=== PATIENT | female | born 1945 | race Caucasian/White ===

== ENCOUNTER → 2023-12-06 16:58 | Outpatient (REF) | payer OTHER, SELFPAY | LOC: RAD 16:58 | PROVIDERS: ATTENDING PHYSICIAN Internal Medicine | DX: M17.0 Bilateral primary osteoarthritis of knee (principal) | CPT/HCPCS: 73564 ==

== ENCOUNTER 2024-01-23 09:04 | Outpatient (RCR) | payer OTHER, SELFPAY | END 2024-01-23 23:59 | disposition home or self-care (01) | LOC: RPT 09:04 | PROVIDERS: ATTENDING PHYSICIAN Internal Medicine | DX: M17.0 Bilateral primary osteoarthritis of knee (principal); Z73.6 Limitation of activities due to disability | CPT/HCPCS: 97110; 97112; 97162; 97530 ==

== ENCOUNTER 2024-02-22 09:52 | Outpatient (RCR) | payer OTHER, SELFPAY | END 2024-02-23 11:12 | disposition home or self-care (01) | LOC: RPT 09:52 | PROVIDERS: ATTENDING PHYSICIAN Internal Medicine | DX: M17.0 Bilateral primary osteoarthritis of knee (principal); Z73.6 Limitation of activities due to disability | CPT/HCPCS: 97110; 97112; 97530 ==

== ENCOUNTER → 2024-07-11 14:30 | Outpatient (REF) | payer OTHER, SELFPAY | LOC: WDC 14:30 | PROVIDERS: ATTENDING PHYSICIAN Internal Medicine | DX: Z12.31 Encounter for screening mammogram for malignant neoplasm of breast (principal) | CPT/HCPCS: 77063; 77067 ==

== ENCOUNTER 2024-08-15 23:07 | Inpatient (IN) | payer OTHER, SELFPAY ==
[2024-08-15 19:44] VITALS: BP 143/100
[2024-08-15] MEDS: TYLENOL 650 MG PO (20:04)
[2024-08-15 20:10] LABS: % Basophils 0.3 % (0-2); % Eosinophils 0.3 % (0-6); % Immature Granulocytes 0.4 % (0-0.5); % Lymphocytes 6.3 % (20.5-51.1); % Monocytes 7.5 % (1.7-9.3); % Neutrophils 85.2 % (42.2-75.2); Absolute Lymphocytes 0.6 10^3/uL (1.2-3.4); Absolute Monocytes 0.7 10^3/uL (0.1-0.6); Absolute Neutrophils 8.1 10^3/uL (1.4-6.5); Hematocrit 41.3 % (37.0-47.0); Hemoglobin 14.7 g/dL (12.0-16.0); Mean Corp Hgb Conc. 35.6 g/dL (33.0-37.0); Mean Corpuscular Hgb 31.3 pg (27.0-31.0); Mean Corpuscular Volume 87.9 fL (81.0-99.0); Mean Platelet Volume 10.4 fL (7.4-10.4); Nucleated Red Blood Cells % 0 %; Platelet Count 253 10^3/uL (130-400); Red Cell Dist. Width 13.2 % (11.5-14.5); White Blood Cell Count 9.6 10^3/uL (4.8-10.8)
[2024-08-15 20:25] LABS: ALT (SGPT) 25 U/L (0-35); AST (SGOT) 22 U/L (14-36); Albumin 4.8 g/dl (3.5-5.0); Alkaline Phosphatase 138 U/L (38-126); Blood Urea Nitrogen 24 mg/dl (7-17); COVID-19 Antigen Positive (Negative); Calcium 9.8 mg/dl (8.4-10.2); Carbon Dioxide 24 mmol/L (22-30); Chloride 103 mmol/L (98-107); Glucose 145 mg/dl (70-99); Potassium 4.1 mmol/L (3.5-5.1); Sodium 139 mmol/L (135-145); Total Bilirubin 0.7 mg/dl (0.2-1.3); Total Protein 7.7 g/dl (6.3-8.2); eGFR > 60.00
[2024-08-15 21:24] VITALS: BMI 37.1
[2024-08-15 21:25] VITALS: BP 162/90
--- NOTE | 2024-08-15 21:40 | ED.GENMED ---
History of Present Illness
General
Chief Complaint: Change in Mental Status
Source: patient
Exam Limitations: none
Time Seen by Provider: 08/15/24 21:33
History of Present Illness
History of Present Illness:
See MDM
Past History
Past History
ED Past Medical History: HTN and Hypercholesterolemia
ED Past Surgical History: None
Social History
Tobacco: Non-smoker
Alcohol: None
Phy Exam
Physical Exam
Physical Exam:
See MDM
Scores
NIH Stroke Score
Level of Consciousness: 0 - Alert
LOC Questions: 0-Answers both correctly
LOC Commands: 0-Performs both correctly
Best Horizontal Gaze: 0-Normal
Visual Estrella: 0=Normal, no visual loss
Facial Palsy: 0=Normal, symmetrical
Motor - Right Arm: 0=No drift 10 seconds
Motor - Left Arm: 0=No drift 10 seconds
Motor - Right Le-No drift 5 seconds
Motor - Left Le-No drift 5 seconds
Limb Ataxia: 0-Absent
Sensation: 0-Normal
Best Language: 0-No aphasia
Dysarthria: 0-Normal
Extinction and Inattention: 0-No abnormality
Total Score:: 0
Sepsis
Sepsis Screening
Sepsis Assessment: Sepsis Ruled Out
Sepsis Screen
Sepsis Screen: Sepsis Ruled Out
Date: 08/15/24
Time: 22:36
Course
Orders/Labs/Results
Orders:
Orders
08/15/24 20:01
COVID-19 Antigen Urgent
Source: Nasal Swab
Complete Blood Count/With Diff Urgent
Comprehensive Metabolic Panel Urgent
Lactic Acid Urgent
Blood Culture Urgent
ABHI Source: Blood/Venous
Specimen Description:
Influenza A+B Rapid Molecular Urgent
ABHI Source: Nasal Swab
Specimen Description:
08/15/24 20:03
Acetaminophen [Tylenol] 650 mg .ROUTE .STK-MED ONE
08/15/24 20:04
Acetaminophen [Tylenol] 650 mg PO NOW STA
08/15/24 21:40
CT Head W/o Iv Contrast Urgent
Comment:
Reason For Exam: confused
08/15/24 22:17
Urinalysis Reflex To Culture Urgent
Date Specimen was Collected: 08/15/24
Time Specimen was Collected: 21:14
Urine Microscopic Reflex Cult Urgent
Abnormal Lab Results
08/15/24 08/15/24
20:01 22:17
MCH 31.3 H pg
(27.0-31.0)
Absolute Neuts (auto) 8.1 H 10^3/uL
(1.4-6.5)
Absolute Lymphs (auto) 0.6 L 10^3/uL
(1.2-3.4)
Absolute Monos (auto) 0.7 H 10^3/uL
(0.1-0.6)
Neutrophils % 85.2 H %
(42.2-75.2)
Lymphocytes % 6.3 L %
(20.5-51.1)
BUN 24 H mg/dl
(7-17)
Glucose 145 H mg/dl
(70-99)
Alkaline Phosphatase 138 H U/L
(38-126)
Urine Ketones 1+ A
(Negative)
Ur Occult Blood Reflex 1+ A
(Negative)
Urine Albumin (Reflex) 1+ A
(Neg - Trace)
SARS-CoV-2 Antigen Positive A
(Negative)
08/15/24 20:01
08/15/24 20:01
Vital Signs
Initial and Last Documented VS:
Initial Vital Signs
Temp Pulse Resp BP Pulse Ox
101.2 F H 92 18 143/100 93
08/15/24 19:44 08/15/24 19:44 08/15/24 19:44 08/15/24 19:44 08/15/24 19:44
Last Documented Vital Signs
Temp Pulse Resp BP Pulse Ox
99.6 F 77 29 162/90 94
08/15/24 21:31 08/15/24 21:30 08/15/24 21:30 08/15/24 21:25 08/15/24 21:30
MDM/Problems Addressed
Differential Diagnosis Includes:
HPI and MDM Narrative:
78-year-old female presenting with her daughters for evaluation of altered mental status. Daughter states that she was concerned because her mother did not call her this evening as she usually does. They tracked her phone and she was at her
friend's house. Her friend is away which was confusing why the patient would be there. When they arrived, the car was parked in the driveway but also on the sidewalk. Patient was trying to move the trash cans and acted confused.
On arrival, patient found to be febrile. She states she had a headache but symptoms improved when she had Tylenol. Family is worried about a UTI versus stroke. We discussed that her symptoms are likely related to COVID and the fever but will
obtain urinalysis and CT scan
Physical exam
General: Well appearing and non-toxic
HEENT: protecting airway. Pupils equal react
Neck: supple
CV: No evidence of cyanosis. Regular rate and rhythm
Resp: No accessory muscle use. Lungs clear
Abd: Non-distended
Extremities: No deformities
Neuro: alert. No focal deficits.
Psych: Normal affect
Skin: Intact
Problems Addressed including Acute and Chronic Conditions affecting care:
1. Altered mental status
Acuity: acute
Prognosis: stable
Details: Likely in the setting of fever and COVID. Will obtain CT head and urinalysis
Updates
CT head negative. Will admit based on persistent confusion
Differential Diagnosis (but not limited to): Viral syndrome, stroke, UTI, hyponatremia
Testing considered: Chest x-ray but lungs are clear
Drug therapy (if applicable): OTC meds, please see d/c instruction regarding Rx drugs
Amount and/or Complexity of Data Reviewed
Clinical info obtained from: Patient
External data reviewed: N/A
Labs I independently reviewed (but not limited to): White blood cell count normal
Radiology: The CT scan was personally and independently reviewed. In addition, official CT report reviewed.
Pulse Ox: not hypoxic
EKG independently reviewed: Sinus rhythm, normal axis, no STEMI
Hvac Controls Technician: N/A
Critical Care: N/A
Risk of Complication:
Social Determinants of health: Good social support
Discussed with other providers: N/A
Escalation of Care includes Admit/Obs: After being observed in the Emergency Department, pt stable for discharge.
Occasional wrong word or 'sound a like' substitutions may have occurred due to the inherent limitations of voice recognition software. Read the chart carefully and recognize, using context, where substitutions have occurred.
*Critical Care Note
Total Time (30-74mins, 75-104mins- exclusive of procedures): Not Applicable
ED Attending Note
-
Portions of this chart may have been created with voice recognition software.� Occasional wrong word or��sound alike� substitutions may have occurred due to the inherent limitations of voice recognition software.
Discharge Plan
Departure
Patient Disposition: Admit
Date of Disposition: 08/15/24
Time of Disposition: 22:35
Admit to: Med/Surg
Presentation/result/management discussed w/ accepting MD/DO: Hospitalist
Discharge Problem:
COVID, Acute confusion
Prescriptions:
No Action
ascorbic acid (vitamin C) [Vitamin C] 1,000 mg Tablet
1 g PO DAILY
amitriptyline 25 mg Tablet
50 mg PO HS
tamsulosin 0.4 mg Capsule
0.4 mg PO HS
zinc 50 mg Tablet
50 mg PO DAILY
aspirin 81 mg Tablet
81 mg PO DAILY
metoprolol tartrate 25 mg Tablet
25 mg PO DAILY
cholecalciferol (vitamin D3) [Vitamin D3] 50 mcg (2,000 unit) Tablet
50 mcg PO DAILY
calcium citrate-vitamin D3 [Citracal + D Maximum] 315 mg-6.25 mcg (250 unit) Tablet
1 tab PO DAILY
Gemtesa 75 mg Tablet
75 mg PO DAILY
Referrals:
UNKNOWN - PT DOES,NOT KNOW [Family Provider] -
Interventions
Interventions:
*Risk Screen - Suicide Last Done: 08/15/24 19:44
*General Assessment Last Done: 08/15/24 19:44
*Neglect/Abuse Screening Last Done: 08/15/24 21:43
*ED- Fall Risk Assessment Last Done: 08/15/24 19:44
*ED COVID-19 Vaccine History Last Done: 08/15/24 19:44
ED- Neurological Assessment Last Done: 08/15/24 21:43
ED- Cardiac Assessment Last Done: 08/15/24 22:09
ED Swallowing Screen Last Done: 08/15/24 21:43
Discharge Date and Time
Print Language: UKRAINIAN
[2024-08-15 22:32] LABS: Urine Albumin 1+ (Neg - Trace); Urine Bilirubin Negative (Negative); Urine Character Slightly Cloudy (Clear); Urine Color Yellow; Urine Glucose Negative (Negative); Urine Ketone 1+ (Negative); Urine Leukocyte Negative (Negative); Urine Nitrite Negative (Negative); Urine Occult Blood 1+ (Negative); Urine Urobilinogen Negative (Neg - 1+)
[2024-08-15 22:42] LABS: Urine Amorphous Seen; Urine Bacteria Many (Negative)
--- NOTE | 2024-08-15 23:09 | HPS.HSE ---
Family Physician
-
Family Physician: NOT KNOW UNKNOWN - PT DOES
Chief Complaint
-
confusion
History of Present Illness
78-year-old female past medical history of hypertension, osteopenia, overactive bladder, hypercholesteremia presenting with altered mental status. Patient lives alone and she is tracked on her phone by her daughters. She was at a friend's house
for 2 hours and she should have left earlier. Daughter checked on her and she was throwing up the garbage and confused. She developed slight cough and sore throat and runny nose today. No sick contacts. No nausea or vomiting or headache or
diarrhea. No abdominal pain.
Does not smoke or drink alcohol.
Medical History
Past Medical History
Past Medical History: Reports Other (hypertension, osteopenia, overactive bladder, hypercholesteremia)
Past Surgical History: Reports None
Social History
Tobacco: Non-smoker
Alcohol: None
Drug: None
Family History
Family History: Not pertinent
Allergies / Home Medications
Allergies reflects when Allergies were last updated in [facility].
Home Medications with original date entered in [facility]
Allergy/Medication List:
Allergies
Allergy/AdvReac Type Severity Reaction Status Date / Time
No Known Allergies Allergy Verified 08/15/24 19:42
Home Medications
amitriptyline 25 mg tablet 50 mg PO HS 08/15/24
ascorbic acid (vitamin C) 1,000 mg tablet (Vitamin C) 1 g PO DAILY 08/15/24
aspirin 81 mg tablet 81 mg PO DAILY 08/15/24
calcium 315 mg (as citrate)-vitamin D3 6.25 mcg (250 unit) tablet (Citracal + Vitamin D Maximum) 1 tab PO DAILY 08/15/24
cholecalciferol (vitamin D3) 50 mcg (2,000 unit) tablet (Vitamin D3) 50 mcg PO DAILY 08/15/24
metoprolol tartrate 25 mg tablet 25 mg PO DAILY 08/15/24
tamsulosin 0.4 mg capsule 0.4 mg PO HS 08/15/24
vibegron 75 mg tablet (Gemtesa) 75 mg PO DAILY 08/15/24
zinc 50 mg tablet 50 mg PO DAILY 08/15/24
Review of Systems
-
History Source: Patient
A 12 point ROS was completed and negative except as noted: Yes
Constitutional: Reports No Symptoms
EENT: Reports No Symptoms
Respiratory: Reports See HPI
Cardiac: Reports No Symptoms
Abdomen/GI: Reports No Symptoms
: Reports No Symptoms
Musculoskeletal: Reports No Symptoms
Skin: Reports No Symptoms
Neurological: Reports No Symptoms
Endocrine: Reports No Symptoms
Hematologic/Lymphatic: Reports No Symptoms
Psych: Reports No Symptoms
Physical Exam
Vital Signs
Vital Signs
Temp Pulse Resp BP Pulse Ox
99.6 F 88 28 162/90 92
08/15/24 21:31 08/15/24 22:30 08/15/24 22:30 08/15/24 21:25 08/15/24 22:30
Physical Exam
General: Well Developed, Well Nourished and No Apparent Distress
HEENT: NormoCephalic, Moist mucous membranes and Atraumatic
Respiratory: Clear
Cardiac: S1/S2 and Regular Rhythm; No Murmur or Rub
GI: Soft, Non Tender, Non Distended and Normal Bowel Sounds; No Organomegaly
Rectal: Deferred by Provider
Musculoskeletal: No Clubbing, No Cyanosis and No Edema
Skin: No Rash
Neuro: Nonfocal/grossly intact
Laboratory Results
-
08/15/24 20:01
08/15/24 20:01
Laboratory Results
Lactic Acid 1.0 mmol/L (0.7-2.0) 08/15/24 20:01
Total Bilirubin 0.7 mg/dl (0.2-1.3) 08/15/24 20:01
AST 22 U/L (14-36) 08/15/24 20:01
ALT 25 U/L (0-35) 08/15/24 20:01
Alkaline Phosphatase 138 U/L (38-126) H 08/15/24 20:01
Data Reviewed
-
Lab Data: Labs Reviewed by me
Old Records: Reviewed
Impression/Plan
-
IMPRESSION:
PLAN:
# Metabolic encephalopathy secondary to COVID/fever
# Sepsis (fever, tachypnea) secondary to COVID
-Patient positive for COVID but not hypoxemic
-CT head negative
-Urinalysis negative
- Blood cultures
- IV fluids
Essential hypertension
- Continue metoprolol
Osteopenia
Overactive bladder
- Continue Gemtesa,
Voiding dysfunction
- Continue tamsulosin, amitriptyline
Hypercholesterolemia
Full code
DVT prophylaxis�heparin
Regular diet
[2024-08-16 01:00] VITALS: BP 139/82
[2024-08-16] MEDS: NSS 1000 IV (01:07)
[2024-08-16] MEDS: FLOMAX 0.4 MG PO (01:08)
[2024-08-16] MEDS: ELAVIL 50 MG PO (01:25)
--- NOTE | 2024-08-16 03:27 | DOWNTIME ---
There was a [employer] Downtime on 08/16/2024 from 0200 to 08/17/2023 at 0318 . Downtime documentation of patient's care, including medication administrations, has been reconciled in the electronic record per guidelines. Refer to the
patient's paper chart under the miscellaneous tab to see printed paper medication records and downtime forms.
[2024-08-16 05:27] VITALS: BP 176/80
[2024-08-16 06:16] LABS: % Basophils 0.5 % (0-2); % Eosinophils 0.5 % (0-6); % Immature Granulocytes 0.5 % (0-0.5); % Lymphocytes 17.9 % (20.5-51.1); % Monocytes 11.9 % (1.7-9.3); % Neutrophils 68.7 % (42.2-75.2); Absolute Monocytes 0.7 10^3/uL (0.1-0.6); Hematocrit 39.8 % (37.0-47.0); Hemoglobin 13.6 g/dL (12.0-16.0); Mean Corp Hgb Conc. 34.2 g/dL (33.0-37.0); Mean Corpuscular Hgb 30.5 pg (27.0-31.0); Mean Corpuscular Volume 89.2 fL (81.0-99.0); Mean Platelet Volume 11.2 fL (7.4-10.4); Nucleated Red Blood Cells % 0 %; Platelet Count 207 10^3/uL (130-400); Red Blood Cell Count 4.46 10^6/uL (4.20-5.40); Red Cell Dist. Width 13.3 % (11.5-14.5); White Blood Cell Count 5.8 10^3/uL (4.8-10.8)
[2024-08-16 06:36] LABS: ALT (SGPT) 21 U/L (0-35); AST (SGOT) 20 U/L (14-36); Albumin 3.6 g/dl (3.5-5.0); Alkaline Phosphatase 109 U/L (38-126); Blood Urea Nitrogen 20 mg/dl (7-17); Calcium 9.1 mg/dl (8.4-10.2); Carbon Dioxide 26 mmol/L (22-30); Chloride 108 mmol/L (98-107); Estimated Creatinine Clearance 74 ml/min; Glucose 104 mg/dl (70-99); Sodium 141 mmol/L (135-145); Total Bilirubin 0.6 mg/dl (0.2-1.3); Total Protein 6.4 g/dl (6.3-8.2); eGFR > 60.00
[2024-08-16 09:25] VITALS: O2SAT 94
[2024-08-16] MEDS: TOPROL XL 25 MG PO (09:32)
[2024-08-16] MEDS: VITAMIN C 1000 MG PO (09:32)
[2024-08-16] MEDS: ASPIR LOW (ENTERIC COATED) 81 MG PO (09:32)
[2024-08-16] MEDS: OSCAL 500 + D 500 MG PO (09:32)
[2024-08-16] MEDS: VITAMIN D3 (cholecalciferol) 50 MCG PO (09:32)
[2024-08-16] MEDS: HEPARIN 5000 UNITS SC (09:33)
[2024-08-16 09:36] VITALS: BP 153/76
[2024-08-16] MEDS: PAXLOVID 2X150 MG-100 MG DOSE PACK 1 DOSE PO (10:20)
[2024-08-16] MEDS: ZINC 50 MG PO (10:20)
--- NOTE | 2024-08-16 10:33 | W.PN.HOSP.TC ---
Today's Communication/Plan
-
Start Paxlovid
If family feels the patient is back to baseline we can discharge her.
Assessment / Plan
Assessment / Plan
78-year-old female with confusion
Patient was pleasant awake and alert
Cardiovascular system S1-S2 appreciated
Chest clear to auscultation
Abdomen soft and nontender
No pedal edema
# Acute metabolic encephalopathy likely secondary to COVID infection
Patient back to baseline
CT head negative
Urinalysis negative for acute infection contaminated specimen with squamous cells
Daughter confirms that patient does not have any urinary symptoms such as dysuria or pain
Blood cultures pending, urine cultures pending
# COVID-19 infection-not hypoxic. Chest x-ray unremarkable
# Essential hypertension-continue metoprolol
# Bladder dysfunction-on Gemtesa, amitriptyline and tamsulosin as outpatient
Microscopic hematuria noted
Hold tamsulosin while on Paxlovid
Outpatient urology follow-up
# Osteopenia
# Obesity per BMI criteria-37
# DVT prophylaxis-subcutaneous heparin
# Full code
Discussed with nursing at bedside
Discussed with pharmacy
Discussed with patient's daughter on the phone. She is in agreement with starting Paxlovid. She was made aware that we need to hold Flomax while she is on Paxlovid.
Patient expressed wishes to go home. If daughter feels that the patient is back to baseline we can discharge her
I made them aware that we will follow blood cultures and let them know if they need to come back.
Anticipated Discharge: Today
Subjective/Interval History
-
Date of Service: August 16, 2024
Objective Data
-
Labs:
Laboratory Results
08/16/24
05:27
WBC 5.8
Hgb 13.6
Hct 39.8
Plt Count 207
Sodium 141
Potassium 4.0
Chloride 108 H
Carbon Dioxide 26
BUN 20 H
Creatinine 0.7
Glucose 104 H
Calcium 9.1
Total Bilirubin 0.6
AST 20
ALT 21
Alkaline Phosphatase 109
Vital Signs:
Vital Signs
Temp Pulse Resp BP Pulse Ox
99.4 F 83 18 153/76 93
08/16/24 08:39 08/16/24 09:36 08/16/24 09:36 08/16/24 09:36 08/16/24 10:17
--- NOTE | 2024-08-16 11:46 | W.DS.TRANS ---
Addendum entered and electronically signed by Az Granado MD 08/16/24 15:14:
Dictation- [id number]
Original Note:
DC Summary - Assistant Teacher
-
Discharge Instructions:
Discharge Diagnosis/Procedures COVID-19 infection
Hypertension
Bladder dysfunction
Osteopenia
Diet As tolerated
Activity As tolerated
Driving Restrictions No driving for 1 week
Other Services VN
Instructions:
Stand-Alone Forms:
Changes to Home Medications: Yes
Discharge Medications:
DC Medications w/original date entered in [facility]
tamsulosin 0.4 mg capsule 0.4 mg PO HS 08/15/24
zinc 50 mg tablet 50 mg PO DAILY 08/15/24
amitriptyline 25 mg tablet 50 mg (2 x 25 mg) PO HS bladder #0 tabs 08/16/24
ascorbic acid (vitamin C) 1,000 mg tablet (Vitamin C) 1 g PO DAILY Supplement #0 tabs 08/16/24
aspirin 81 mg tablet 81 mg PO DAILY Blood clot prevention/tx #0 tabs 08/16/24
calcium 315 mg (as citrate)-vitamin D3 6.25 mcg (250 unit) tablet (Citracal + Vitamin D Maximum) 1 tab PO DAILY Supplement #0 tabs 08/16/24
cholecalciferol (vitamin D3) 50 mcg (2,000 unit) tablet (Vitamin D3) 50 mcg PO DAILY Supplement #0 tabs 08/16/24
metoprolol succinate 25 mg tablet,extended release 24 hr (Toprol XL) 25 mg PO DAILY Blood pressure #0 tabs 08/16/24
nirmatrelvir 300 mg (150 mg x2)-ritonavir 100 mg tablet,dose pack (Paxlovid) 1 ea PO BID covid 19 #30 ea 08/16/24
vibegron 75 mg tablet (Gemtesa) 75 mg PO HS bladder #0 tabs 08/16/24
Home Medication Changes
Paxlovid is new
Holding Flomax
Pending Results: Yes
Additional Pending Results:
blood CX and urine CX
--- NOTE | 2024-08-16 11:53 | CM ---
Addendum entered by Carol Steiner 08/16/24 17:06:
Discharged to home today with home health services
Daughter provided transport
Original Note:
Initial assessment and Case Management Consult complete with patient and her daughter, Shirlene (#[phone]), in the ED
Patient is Positive Covid-19; isolation precautions followed
Pharmacy verified: [facility] @ [address] [place]
Daughter reported that her mother lives alone in a one floor home; laundry in the basement; bathroom has walk-in shower
PLOF: Daughter confirmed that mother is independent with ambulation and ADLs @ baseline; drives; and works a couple of days/week as a seamstress
Patient's daughter's live in [place] and check on patient every day
Patient and Daughter agreeable to Home Health/VN/PT services; agency options identified; referral sent to [facility]
Plan: Discharge to home today; with Home Health
--- NOTE | 2024-08-16 11:58 | VNURNOTE ---
Home Health Liaison spoke with patient's daughter to discuss VN nurse/therapy, visits, schedule and homebound status. Daughter is agreeable and understands that visits at home will be 2-3 x per week to assess and teach medical management.
D[facility] is aware that [facility] for start of care in 1-2 days after discharge from .
[facility] referral completed in [facility].
== END 2024-08-16 12:23 | disposition home health service (06) | DRG 177 ==
LOC: ED 23:07
PROVIDERS: ADMITTING PHYSICIAN Hospitalist; ATTENDING PHYSICIAN Hospitalist; EMERGENCY PHYSICIAN Student in an Organized Health Care Education/Training Program; FAMILY PHYSICIAN Internal Medicine
PROC: XW0DXF5 Introduction of Other New Technology Therapeutic Substance into Mouth and Pharynx, External Approach, New Technology Group 5 (ICD-10-PCS; 2024-08-16)
DX: U07.1 COVID-19 (principal); G93.41 Metabolic encephalopathy; I10 Essential (primary) hypertension; M85.88 Other specified disorders of bone density and structure, other site; E78.00 Pure hypercholesterolemia, unspecified; N31.9 Neuromuscular dysfunction of bladder, unspecified; R31.29 Other microscopic hematuria; E66.9 Obesity, unspecified; Z68.37 Body mass index [BMI] 37.0-37.9, adult
CPT/HCPCS: 70450; 71046; 80053; 81003; 81015; 83605; 85025; 87040; 87086; 87502; 87811; 96360; 96361; 97162; 99285

== ENCOUNTER → 2024-12-28 14:39 | Outpatient (REF) | payer OTHER, SELFPAY | LOC: RCS 14:39 | PROVIDERS: ATTENDING PHYSICIAN Internal Medicine | DX: R60.0 Localized edema (principal) | CPT/HCPCS: 93005; 93306 ==

== ENCOUNTER → 2025-03-28 07:57 | Outpatient (REF) | payer OTHER, SELFPAY | LOC: HWRCS 07:57 | PROVIDERS: ATTENDING PHYSICIAN Internal Medicine; REFERRING PHYSICIAN Internal Medicine Cardiovascular Disease | DX: R94.31 Abnormal electrocardiogram [ECG] [EKG] (principal) | CPT/HCPCS: 78452; 93017; A9500; J2785 ==